=== PATIENT | male | born 1995 | race Caucasian/White ===

== ENCOUNTER 2020-09-22 10:20 | Emergency (ER) | payer OTHER, SELFPAY ==
--- NOTE | ~2020-09-22 | XR_ITS ---
EXAMINATION: XR chest 2V DATE: 09/22/2020 11:06 INDICATION: Left-sided chest pain TECHNIQUE: PA and lateral views of the chest are obtained. COMPARISON: None available FINDINGS: The lungs are free of acute opacities. There is no pleural effusion or pneumothorax. The ca rdiomediastinal silhouette is normal. The visualized bones and soft tissues are unremarkable. IMPRESSION: 1. No acute cardiopulmonary abnormality. Reviewed, dictated and finalized at location B.
[2020-09-22 10:34] VITALS: BP 111/74; PULSE 82; RESP 18; TEMP 36.9; O2SAT 100
--- NOTE | 2020-09-22 10:38 | ED.GENADULT ---
HPI - General Adult General Chief complaint: Extremity Injury, Upper Stated complaint: Lt shoulder,Lt chest pain Time Seen by Provider: 09/22/20 10:38 Source: patient and RN notes reviewed Mode of arrival: ambulatory Limitations: no limitations History of Present Illness HPI narrative: 24-year-old male presents with complaints of intermittent left shoulder and chest wall pain for the past 2 days. 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 ?Tylenol took last this morning at approximately 08:30, Aleve last took on 09/21/20, and?applied an ice pack without relief. ?Denies numbness or tingling. Hurts with certain movement of shoulder. ?Denies radiating pain. ?No loss of mobility. ?No swelling. ?Exacerbating factor is certain movement and inhalation. ?Relieving factor is rest. ?The dominant hand is the RIGHT HAND. ?Remains active. ?The patient reports he has not been diagnosed with COVID-19. ?The patient reports he received 2 [employer] COVID-19 vaccines. ?The patient reports he is not waiting for the results of a COVID-19 lab test. The patient reports he does not have weakness, fatigue, or myalgia. ?The patient reports he does not have a new or worsening cough or shortness of breath. ?The patient reports he does not have any rhinorrhea, congestion, loss of taste, sore throat, and diarrhea. ?Denies recent traveling. ?Denies concerns for COVID-19 or exposures. ?At this time, the patient is not suspected of having COVID-19. Some parts of this dictation were generated by voice recognition software and may contain typographical and/or grammatical inaccuracies. Related Data Allergies Allergy/AdvReac Type Severity Reaction Status Date / Time Penicillins Allergy Unknown Rash Verified 09/22/20 10:40 Review of Systems Review of Systems: CONSTITUTIONAL: Denies fever, chills, sweats. EYES: Denies visual changes, redness, discharge. ENT: Denies rhinorrhea, congestion, sore throat, otalgia. CARDIOVASCULAR: Denies chest pain, palpitations, edema. Complains of intermittent left chest wall pain. RESPIRATORY: Denies dyspnea, wheezing, cough. GASTROINTESTINAL: Denies abdominal pain, nausea, vomiting, diarrhea. SKIN: Denies rash or itching. MUSCULOSKELETAL: Denies acute back pain or myalgia. Complaints of intermittent left shoulder. NEUROLOGIC: Denies numbness or focal weakness. PSYCHIATRIC: Denies anxiety or depression. All other systems reviewed & are unremarkable except as noted in HPI and below. 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 There is no relevant family history pertinent to the presenting complaint. Exam Narrative: GENERAL: This is a well-nourished, well-developed patient, in no apparent distress. Talks in full sentences and ambulates with steady gait without dyspnea. HEAD: Normocephalic, atraumatic. EYES: P
--- NOTE | 2020-09-22 10:49 | ECG_ITS ---
Measurements Intervals [place] Rate: 76 P: 63 NC: 128 QRS: 42 QRSD: 93 T: 46 QT: 359 QTc: 405 Interpretive Statements SINUS RHYTHM NORMAL ECG Electronically Signed On 09-22-2020 11:14:44 CDT by Marcellus Hendrix D.O.
[2020-09-22] MEDS: KETOROLAC (*BKC) 60 MG/2 ML VIAL IM (11:00)
[2020-09-22 11:01] VITALS: PULSE 76
== END 2020-09-22 11:45 | disposition home or self-care (01) ==
PROVIDERS: Emergency Provider Nurse Practitioner Family
DX: M94.0 Chondrocostal junction syndrome [Tietze] (principal); S46.912A Strain of unspecified muscle, fascia and tendon at shoulder and upper arm level, left arm, initial encounter; X50.3XXA Overexertion from repetitive movements, initial encounter
CPT/HCPCS: 71046; 93005; 96372; 99203; G0463; J1885